=== PATIENT | female | born 2005 | race Asian ===

== ENCOUNTER 2024-03-21 16:35 | Emergency (ER) | payer MEDICAID ==
[~2024-03-21] VITALS: Ht 162.6 cm; Wt 51.7 kg
[2024-03-21 16:40] VITALS: TEMP 98.2
[2024-03-21] MEDS: TETanus/Pertussis (Acell)/Diphther VAC/PF (Tdap-Adult) 0.5ml syringe IMVAC ONE (17:41)
[2024-03-21] MEDS: LIDOcaine 1% 30ml preserv. free vial IJ ONE (17:41)
[2024-03-21] MEDS: acetaminophen 325mg tablet PO ONE (17:43)
[2024-03-21] MEDS: LIDOcaine/epinephrine/tetracaine TOPICAL sol 3 ML syringe TOP ONE (17:45)
[2024-03-21 18:55] VITALS: BP 128/88; PULSE 89; RESP 18; O2SAT 100
== END 2024-03-21 18:58 | disposition home or self-care (01) ==
LOC: ER 16:36
DX: S61.412A Laceration without foreign body of left hand, initial encounter (principal); Z88.6 Allergy status to analgesic agent; W25.XXXA Contact with sharp glass, initial encounter; Y93.89 Activity, other specified; Y92.89 Other specified places as the place of occurrence of the external cause; Y99.8 Other external cause status
CPT/HCPCS: 12002; 73130; 99283; J3490; A6258; A6446; A6449

== ENCOUNTER 2024-03-30 10:50 | Emergency (ER) | payer MEDICAID ==
[~2024-03-30] VITALS: Ht 165.1 cm; Wt 47.7 kg
[2024-03-30 11:41] LABS: BASOPHILS % (AUTO) 0.4 % (0-1); EOSINOPHILS # (AUTO) 0.1 X10'3 (0-0.9); EOSINOPHILS % (AUTO) 0.8 % (0-6); HEMATOCRIT 35.9 % (35.0-45.0); HEMOGLOBIN 11.1 g/dl (12.0-16.0); LYMPHOCYTES # (AUTO) 1.1 X10'3 (1.1-4.8); LYMPHOCYTES % (AUTO) 14.9 % (21-51); MEAN CORPUSCULAR VOLUME 71.1 FL (78-98); MEAN PLATELET VOLUME 8.9 FL (7.4-10.4); MONOCYTES # (AUTO) 0.5 X10'3 (0-0.9); MONOCYTES % (AUTO) 6.8 % (2-12); NEUTROPHILS # (AUTO) 5.5 X10'3 (1.8-7.7); NEUTROPHILS % (AUTO) 77.1 % (42-75); PLATELET COUNT 257 X10'3 (140-440); RED BLOOD COUNT 5.05 X10'6 (4.20-5.60); RED CELL DISTRIBUTION WIDTH 17.5 % (11.5-14.5); WHITE BLOOD COUNT 7.1 X10'3 (4.5-11.0)
[2024-03-30 11:47] LABS: ANION GAP 8 (8-16); BLOOD UREA NITROGEN 12 MG/DL (7-18); BUN/CREATININE RATIO 11.9 (10.0-20.0); CALCIUM 8.4 MG/DL (8.5-10.1); CHLORIDE 104 MMOL/L (99-107); CREATININE 1.01 MG/DL (0.40-0.90); GLUCOSE 170 MG/DL (70-104); POTASSIUM 3.4 MMOL/L (3.5-5.1); SODIUM 139 MMOL/L (135-145); TOTAL CARBON DIOXIDE 26.9 MMOL/L (24-32); eCRCL 68 ML/MIN; eGFR 71 ML/MIN
[2024-03-30 13:28] VITALS: TEMP 98
[2024-03-30 14:06] VITALS: BP 114/58; PULSE 65; RESP 14; O2SAT 99
== END 2024-03-30 14:08 | disposition home or self-care (01) ==
LOC: ER 10:50
DX: S61.412D Laceration without foreign body of left hand, subsequent encounter (principal); F17.200 Nicotine dependence, unspecified, uncomplicated; Z88.6 Allergy status to analgesic agent; X58.XXXD Exposure to other specified factors, subsequent encounter
CPT/HCPCS: 36415; 80048; 83735; 85025; 99285